=== PATIENT | male | born 1985 | race Caucasian/White ===

== ENCOUNTER 2022-09-06 11:52 | Inpatient (IN) | payer OTHER ==
[2022-09-06 13:20] VITALS: BMI 28.3
[2022-09-06] MEDS ORDERED: guaiFENesin 600 MG TABLET.ER (FP) PO PRN (15:54)
[2022-09-06] MEDS ORDERED: MAGNESIUM HYDROX 2400MG/30ML ORAL SUSPENSION 30 ML CUP PO PRN (15:54)
[2022-09-06] MEDS ORDERED: NALOXONE HCL (KLOXXADO) 8 MG SPRAY NS PRN (15:54)
[2022-09-06] MEDS ORDERED: NALOXONE HCL 0.4 MG/ML VIAL IM PRN (15:54)
[2022-09-06] MEDS ORDERED: BENZONATATE 200 MG CAPSULE PO PRN (15:54)
[2022-09-06] MEDS ORDERED: BENZOCAINE/MENTHOL (CHLORASEPTIC ) LOZENGE MM PRN (15:54)
[2022-09-06] MEDS ORDERED: MAG HYDROX/AL HYDROX/SIMETH 30 ML UNIT-DOSE CUP PO PRN (15:54)
[2022-09-06] MEDS ORDERED: LOPERAMIDE HCL 2 MG CAPSULE PO PRN (15:54)
[2022-09-06] MEDS ORDERED: ACETAMINOPHEN 325 MG TABLET (FP) PO PRN (15:54)
[2022-09-06] MEDS ORDERED: POLYETHYLENE GLYCOL (HEALTHYLAX) 3350 17 GM PACKET PO PRN (15:54)
[2022-09-06] MEDS ORDERED: ONDANSETRON *ODT* 4 MG TABLET SL PRN (15:54)
[2022-09-06] MEDS ORDERED: IBUPROFEN 600 MG TABLET (FP) PO PRN (15:54)
[2022-09-06] MEDS ORDERED: IBUPROFEN 400 MG TABLET (FP) PO PRN (15:54)
[2022-09-06] MEDS ORDERED: BISMUTH SUBSALICYLATE 524 MG/30 ML PO PRN (15:54)
[2022-09-06] MEDS ORDERED: hydrOXYzine PAMOATE 25 MG CAPSULE (FP) PO PRN (15:54)
[2022-09-06] MEDS ORDERED: DICYCLOMINE HCL 10 MG CAPSULE PO PRN (15:54)
[2022-09-06] MEDS ORDERED: chlordiazePOXIDE HCL 25 MG CAPSULE PO PRN (15:54)
[2022-09-06] MEDS ORDERED: chlordiazePOXIDE HCL 25 MG CAPSULE ONE (17:25)
[2022-09-06] MEDS: chlordiazePOXIDE HCL 25 MG CAPSULE PO SCH ×2 (17:27→22:22)
[2022-09-06] MEDS ORDERED: cloNIDine HCL 0.1 MG TABLET PO PRN (18:20)
[2022-09-06] MEDS ORDERED: metFORMIN HCL 500 MG TABLET (FP) PO ONE (18:37)
[2022-09-06] MEDS: MELATONIN 5 MG TABLETS PO SCH (22:21)
[2022-09-06] MEDS: THIAMINE HCL 100 MG TABLET (FP) PO SCH (22:21)
[2022-09-07] MEDS: chlordiazePOXIDE HCL 25 MG CAPSULE PO SCH ×4 (05:56→22:18)
[2022-09-07] MEDS: metFORMIN HCL 500 MG TABLET (FP) PO SCH ×2 (06:16→17:03)
[2022-09-07] MEDS: PRENATAL VITAMINS W/ FOLIC ACID TABLET (FP) PO SCH (10:15)
[2022-09-07 10:49] LABS: HEMATOCRIT 41.8 % (35.4-49); HEMOGLOBIN 14.3 GM/dL (11.7-16.9); MCH 33.3 pg (25.7-33.7); MCHC 34.2 g/dl (32.0-35.9); MEAN CELL VOLUME 97.3 fl (80-96); MEAN PLT VOLUME 10.3 fl (7.5-11.1); PLATELET COUNT 130 10^3/uL (134-434); RDW 12.7 % (11.9-15.9); WHITE BLOOD COUNT 3.8 K/mm3 (4.0-10.0)
[2022-09-07 10:55] LABS: POTASSIUM 3.9 mmol/L (3.5-5.1)
[2022-09-07 11:15] LABS: ALBUMIN 3.6 g/dl (3.4-5.0); CALCIUM 9.1 mg/dL (8.5-10.1)
[2022-09-07 11:18] LABS: CREATININE 0.8 mg/dL (0.55-1.3)
[2022-09-07] MEDS: THIAMINE HCL 100 MG TABLET (FP) PO SCH (22:17)
[2022-09-07] MEDS: METHOCARBAMOL 500 MG TABLET PO PRN (22:17)
[2022-09-07] MEDS: MELATONIN 5 MG TABLETS PO SCH (22:17)
[2022-09-08] MEDS: chlordiazePOXIDE HCL 25 MG CAPSULE PO SCH ×4 (05:33→22:13)
[2022-09-08] MEDS: metFORMIN HCL 500 MG TABLET (FP) PO SCH ×2 (06:14→17:32)
[2022-09-08] MEDS: PRENATAL VITAMINS W/ FOLIC ACID TABLET (FP) PO SCH (10:07)
[2022-09-08] MEDS: METHOCARBAMOL 500 MG TABLET PO PRN (22:14)
[2022-09-08] MEDS: MELATONIN 5 MG TABLETS PO SCH (22:14)
[2022-09-08] MEDS: THIAMINE HCL 100 MG TABLET (FP) PO SCH (22:14)
[2022-09-09] MEDS ORDERED: chlordiazePOXIDE HCL 10 MG CAPSULE PO PRN
[2022-09-09] MEDS: chlordiazePOXIDE HCL 10 MG CAPSULE PO SCH ×4 (05:43→22:20)
[2022-09-09] MEDS: metFORMIN HCL 500 MG TABLET (FP) PO SCH ×2 (06:20→16:56)
[2022-09-09] MEDS: PRENATAL VITAMINS W/ FOLIC ACID TABLET (FP) PO SCH (10:03)
[2022-09-09] MEDS: MELATONIN 5 MG TABLETS PO SCH (22:19)
[2022-09-09] MEDS: THIAMINE HCL 100 MG TABLET (FP) PO SCH (22:19)
[2022-09-10] MEDS: chlordiazePOXIDE HCL 10 MG CAPSULE PO SCH ×2 (05:46→16:57)
[2022-09-10] MEDS: metFORMIN HCL 500 MG TABLET (FP) PO SCH ×2 (06:08→16:56)
[2022-09-10] MEDS: PRENATAL VITAMINS W/ FOLIC ACID TABLET (FP) PO SCH (10:11)
[2022-09-10] MEDS: METHOCARBAMOL 500 MG TABLET PO PRN ×2 (14:40→21:44)
[2022-09-10] MEDS: THIAMINE HCL 100 MG TABLET (FP) PO SCH (21:44)
[2022-09-10] MEDS: MELATONIN 5 MG TABLETS PO SCH (21:44)
[2022-09-11] MEDS ORDERED: chlordiazePOXIDE HCL 10 MG CAPSULE PO ONE (05:00)
[2022-09-11] MEDS: metFORMIN HCL 500 MG TABLET (FP) PO SCH (06:02)
[2022-09-11 08:53] VITALS: BP 109/64; PULSE 77; RESP 18; TEMP 98.1
[2022-09-11] MEDS: PRENATAL VITAMINS W/ FOLIC ACID TABLET (FP) PO SCH (09:21)
== END 2022-09-11 12:55 | disposition other institution (70) | DRG 775 ==
LOC: YASAS 11:52 → Y3N 17:33
PROVIDERS: ADMIT Allergy & Immunology; ATTEND Surgery
PROC: HZ2ZZZZ Detoxification Services for Substance Abuse Treatment (ICD-10-PCS; principal; 2022-09-06)
DX: F10.230 Alcohol dependence with withdrawal, uncomplicated (principal); F51.05 Insomnia due to other mental disorder; F19.94 Other psychoactive substance use, unspecified with psychoactive substance-induced mood disorder; E11.9 Type 2 diabetes mellitus without complications; Z79.84 Long term (current) use of oral hypoglycemic drugs
CPT/HCPCS: 36415; 80053; 82962; 83036; 85027; 86780; 87635; 93005; 93010

== ENCOUNTER 2022-09-11 12:57 | Inpatient (IN) | payer OTHER ==
[2022-09-11] MEDS ORDERED: NALOXONE HCL (KLOXXADO) 8 MG SPRAY NS PRN (19:10)
[2022-09-11] MEDS ORDERED: NALOXONE HCL 0.4 MG/ML VIAL IVPUSH PRN (19:10)
[2022-09-11] MEDS ORDERED: IBUPROFEN 400 MG TABLET (FP) PO PRN (19:10)
[2022-09-11] MEDS ORDERED: METHOCARBAMOL 500 MG TABLET PO PRN (19:10)
[2022-09-11] MEDS ORDERED: BENZONATATE 200 MG CAPSULE PO PRN (19:10)
[2022-09-11] MEDS ORDERED: guaiFENesin 600 MG TABLET.ER (FP) PO PRN (19:10)
[2022-09-11] MEDS ORDERED: AMMONIUM LACTATE 12% LOTION 225 GM BOTTLE TP PRN (19:10)
[2022-09-11] MEDS ORDERED: POLYETHYLENE GLYCOL (HEALTHYLAX) 3350 17 GM PACKET PO PRN (19:10)
[2022-09-11] MEDS ORDERED: IBUPROFEN 600 MG TABLET (FP) PO PRN (19:10)
[2022-09-11] MEDS ORDERED: BENZOCAINE/MENTHOL (CHLORASEPTIC ) LOZENGE MM PRN (19:10)
[2022-09-11] MEDS ORDERED: MAG HYDROX/AL HYDROX/SIMETH 30 ML UNIT-DOSE CUP PO PRN (19:10)
[2022-09-11] MEDS ORDERED: ACETAMINOPHEN 325 MG TABLET (FP) PO PRN (19:10)
[2022-09-11] MEDS ORDERED: LOPERAMIDE HCL 2 MG CAPSULE PO PRN (19:10)
[2022-09-11] MEDS ORDERED: MAGNESIUM HYDROX 2400MG/30ML ORAL SUSPENSION 30 ML CUP PO PRN (19:10)
[2022-09-11] MEDS ORDERED: COLLOIDAL OATMEAL 1 BAR EACH TP PRN (19:10)
[2022-09-11] MEDS ORDERED: metFORMIN HCL 500 MG TABLET (FP) PO ONE (19:33)
[2022-09-11] MEDS: MELATONIN 5 MG TABLETS PO SCH (21:13)
[2022-09-11] MEDS: THIAMINE HCL 100 MG TABLET (FP) PO SCH (21:13)
[2022-09-11] MEDS: hydrOXYzine PAMOATE 25 MG CAPSULE (FP) PO PRN (21:14)
[2022-09-12] MEDS: metFORMIN HCL 500 MG TABLET (FP) PO SCH ×2 (06:40→16:46)
[2022-09-12] MEDS: PRENATAL VITAMINS W/ FOLIC ACID TABLET (FP) PO SCH (09:32)
[2022-09-12] MEDS: hydrOXYzine PAMOATE 25 MG CAPSULE (FP) PO PRN (16:46)
[2022-09-12] MEDS: MELATONIN 5 MG TABLETS PO SCH (21:25)
[2022-09-12] MEDS: THIAMINE HCL 100 MG TABLET (FP) PO SCH (21:25)
[2022-09-13] MEDS: metFORMIN HCL 500 MG TABLET (FP) PO SCH ×2 (06:18→17:06)
[2022-09-13] MEDS: PRENATAL VITAMINS W/ FOLIC ACID TABLET (FP) PO SCH (09:57)
[2022-09-13] MEDS: THIAMINE HCL 100 MG TABLET (FP) PO SCH (21:09)
[2022-09-13] MEDS: MELATONIN 5 MG TABLETS PO SCH (21:09)
[2022-09-13] MEDS: hydrOXYzine PAMOATE 25 MG CAPSULE (FP) PO PRN (21:09)
[2022-09-14] MEDS: metFORMIN HCL 500 MG TABLET (FP) PO SCH ×2 (06:55→17:24)
[2022-09-14] MEDS: PRENATAL VITAMINS W/ FOLIC ACID TABLET (FP) PO SCH (09:43)
[2022-09-14] MEDS: LIDOCAINE 5% TOPICAL PATCH TP SCH (12:16)
[2022-09-14] MEDS: INSULIN SLIDING SCALE (NOVOLOG) 1 VIAL SQ SCH (17:25)
[2022-09-14] MEDS: LIDOCAINE PATCH REMOVAL MC SCH (21:45)
[2022-09-14] MEDS: THIAMINE HCL 100 MG TABLET (FP) PO SCH (21:45)
[2022-09-14] MEDS: MELATONIN 5 MG TABLETS PO SCH (21:45)
[2022-09-14] MEDS: hydrOXYzine PAMOATE 25 MG CAPSULE (FP) PO PRN (21:46)
[2022-09-15] MEDS: metFORMIN HCL 500 MG TABLET (FP) PO SCH ×2 (06:02→16:32)
[2022-09-15] MEDS: INSULIN SLIDING SCALE (NOVOLOG) 1 VIAL SQ SCH ×2 (06:03→16:47)
[2022-09-15] MEDS: LIDOCAINE 5% TOPICAL PATCH TP SCH (09:51)
[2022-09-15] MEDS: PRENATAL VITAMINS W/ FOLIC ACID TABLET (FP) PO SCH (09:51)
[2022-09-15 11:26] LABS: POTASSIUM 5.6 mmol/L (3.5-5.1)
[2022-09-15 11:31] LABS: ALBUMIN 3.9 g/dl (3.4-5.0); BLOOD UREA NITROGEN 9.7 mg/dL (7-18); CALCIUM 9.5 mg/dL (8.5-10.1)
[2022-09-15 11:33] LABS: CREATININE 0.8 mg/dL (0.55-1.3)
[2022-09-15 11:35] LABS: BILIRUBIN,TOTAL 0.2 mg/dL (0.2-1); TOT PROT 7.2 g/dl (6.4-8.2)
[2022-09-15] MEDS: SODIUM POLYSTYRENE SULFONATE 15 GM/60 ML BOTTLE PO SCH ×2 (12:54→21:33)
[2022-09-15] MEDS: hydrOXYzine PAMOATE 25 MG CAPSULE (FP) PO PRN (16:32)
[2022-09-15] MEDS: MELATONIN 5 MG TABLETS PO SCH (21:31)
[2022-09-15] MEDS: THIAMINE HCL 100 MG TABLET (FP) PO SCH (21:32)
[2022-09-15] MEDS: LIDOCAINE PATCH REMOVAL MC SCH (21:35)
[2022-09-16] MEDS: INSULIN SLIDING SCALE (NOVOLOG) 1 VIAL SQ SCH ×2 (06:00→16:25)
[2022-09-16] MEDS: metFORMIN HCL 500 MG TABLET (FP) PO SCH ×2 (06:00→16:25)
[2022-09-16] MEDS: hydrOXYzine PAMOATE 25 MG CAPSULE (FP) PO PRN ×2 (06:01→21:14)
[2022-09-16] MEDS: PRENATAL VITAMINS W/ FOLIC ACID TABLET (FP) PO SCH (09:11)
[2022-09-16] MEDS: LIDOCAINE 5% TOPICAL PATCH TP SCH (09:12)
[2022-09-16 13:06] LABS: POTASSIUM 4.3 mmol/L (3.5-5.1)
[2022-09-16 13:14] LABS: ALBUMIN 3.8 g/dl (3.4-5.0); CALCIUM 9.3 mg/dL (8.5-10.1)
[2022-09-16 13:16] LABS: CREATININE 0.8 mg/dL (0.55-1.3)
[2022-09-16 13:17] LABS: BILIRUBIN,TOTAL 0.3 mg/dL (0.2-1); TOT PROT 6.8 g/dl (6.4-8.2)
[2022-09-16] MEDS: MELATONIN 5 MG TABLETS PO SCH (21:14)
[2022-09-16] MEDS: THIAMINE HCL 100 MG TABLET (FP) PO SCH (21:14)
[2022-09-16] MEDS: LIDOCAINE PATCH REMOVAL MC SCH (21:41)
[2022-09-17] MEDS: metFORMIN HCL 500 MG TABLET (FP) PO SCH ×2 (06:32→17:27)
[2022-09-17] MEDS: INSULIN SLIDING SCALE (NOVOLOG) 1 VIAL SQ SCH ×2 (06:34→16:38)
[2022-09-17] MEDS: LIDOCAINE 5% TOPICAL PATCH TP SCH (09:37)
[2022-09-17] MEDS: PRENATAL VITAMINS W/ FOLIC ACID TABLET (FP) PO SCH (09:37)
[2022-09-17] MEDS: THIAMINE HCL 100 MG TABLET (FP) PO SCH (21:31)
[2022-09-17] MEDS: MELATONIN 5 MG TABLETS PO SCH (21:31)
[2022-09-17] MEDS: hydrOXYzine PAMOATE 25 MG CAPSULE (FP) PO PRN (21:31)
[2022-09-17] MEDS: LIDOCAINE PATCH REMOVAL MC SCH (21:32)
[2022-09-18] MEDS: metFORMIN HCL 500 MG TABLET (FP) PO SCH ×2 (06:01→16:31)
[2022-09-18] MEDS: INSULIN SLIDING SCALE (NOVOLOG) 1 VIAL SQ SCH ×2 (06:01→16:32)
[2022-09-18] MEDS: PRENATAL VITAMINS W/ FOLIC ACID TABLET (FP) PO SCH (10:40)
[2022-09-18] MEDS: LIDOCAINE 5% TOPICAL PATCH TP SCH (10:40)
[2022-09-18] MEDS: MELATONIN 5 MG TABLETS PO SCH (21:18)
[2022-09-18] MEDS: hydrOXYzine PAMOATE 25 MG CAPSULE (FP) PO PRN (21:18)
[2022-09-18] MEDS: THIAMINE HCL 100 MG TABLET (FP) PO SCH (21:18)
[2022-09-18] MEDS: LIDOCAINE PATCH REMOVAL MC SCH (21:18)
[2022-09-19] MEDS: metFORMIN HCL 500 MG TABLET (FP) PO SCH ×2 (06:22→16:58)
[2022-09-19] MEDS: INSULIN SLIDING SCALE (NOVOLOG) 1 VIAL SQ SCH ×2 (06:23→17:03)
[2022-09-19] MEDS: PRENATAL VITAMINS W/ FOLIC ACID TABLET (FP) PO SCH (09:51)
[2022-09-19] MEDS: LIDOCAINE 5% TOPICAL PATCH TP SCH (09:51)
[2022-09-19] MEDS: LIDOCAINE PATCH REMOVAL MC SCH (21:01)
[2022-09-19] MEDS: MELATONIN 5 MG TABLETS PO SCH (21:01)
[2022-09-19] MEDS: THIAMINE HCL 100 MG TABLET (FP) PO SCH (21:01)
[2022-09-19] MEDS: hydrOXYzine PAMOATE 25 MG CAPSULE (FP) PO PRN (21:02)
[2022-09-20] MEDS: metFORMIN HCL 500 MG TABLET (FP) PO SCH ×2 (06:15→17:09)
[2022-09-20] MEDS: INSULIN SLIDING SCALE (NOVOLOG) 1 VIAL SQ SCH ×2 (06:16→17:10)
[2022-09-20] MEDS: LIDOCAINE 5% TOPICAL PATCH TP SCH (09:48)
[2022-09-20] MEDS: PRENATAL VITAMINS W/ FOLIC ACID TABLET (FP) PO SCH (09:48)
[2022-09-20] MEDS: BACITRACIN ZINC 15 GM TUBE TOPICAL OINTMENT TP SCH ×2 (11:17→21:19)
[2022-09-20] MEDS: THIAMINE HCL 100 MG TABLET (FP) PO SCH (21:17)
[2022-09-20] MEDS: MELATONIN 5 MG TABLETS PO SCH (21:17)
[2022-09-20] MEDS: hydrOXYzine PAMOATE 25 MG CAPSULE (FP) PO PRN (21:18)
[2022-09-20] MEDS: LIDOCAINE PATCH REMOVAL MC SCH (21:19)
[2022-09-21] MEDS: metFORMIN HCL 500 MG TABLET (FP) PO SCH ×2 (06:40→16:21)
[2022-09-21] MEDS: INSULIN SLIDING SCALE (NOVOLOG) 1 VIAL SQ SCH ×2 (07:00→16:22)
[2022-09-21] MEDS: PRENATAL VITAMINS W/ FOLIC ACID TABLET (FP) PO SCH (10:02)
[2022-09-21] MEDS: BACITRACIN ZINC 15 GM TUBE TOPICAL OINTMENT TP SCH ×2 (10:02→21:10)
[2022-09-21] MEDS: LIDOCAINE 5% TOPICAL PATCH TP SCH (10:02)
[2022-09-21] MEDS: MELATONIN 5 MG TABLETS PO SCH (21:09)
[2022-09-21] MEDS: THIAMINE HCL 100 MG TABLET (FP) PO SCH (21:09)
[2022-09-21] MEDS: hydrOXYzine PAMOATE 25 MG CAPSULE (FP) PO PRN (21:10)
[2022-09-21] MEDS: LIDOCAINE PATCH REMOVAL MC SCH (21:10)
[2022-09-22] MEDS: metFORMIN HCL 500 MG TABLET (FP) PO SCH ×2 (06:27→16:25)
[2022-09-22] MEDS: INSULIN SLIDING SCALE (NOVOLOG) 1 VIAL SQ SCH ×2 (06:28→16:25)
[2022-09-22] MEDS: PRENATAL VITAMINS W/ FOLIC ACID TABLET (FP) PO SCH (09:35)
[2022-09-22] MEDS: LIDOCAINE 5% TOPICAL PATCH TP SCH (09:35)
[2022-09-22] MEDS: BACITRACIN ZINC 15 GM TUBE TOPICAL OINTMENT TP SCH ×2 (10:28→21:27)
[2022-09-22] MEDS: MELATONIN 5 MG TABLETS PO SCH (21:27)
[2022-09-22] MEDS: hydrOXYzine PAMOATE 25 MG CAPSULE (FP) PO PRN (21:27)
[2022-09-22] MEDS: THIAMINE HCL 100 MG TABLET (FP) PO SCH (21:27)
[2022-09-22] MEDS: LIDOCAINE PATCH REMOVAL MC SCH (21:28)
[2022-09-23] MEDS: metFORMIN HCL 500 MG TABLET (FP) PO SCH ×2 (06:13→17:09)
[2022-09-23] MEDS: INSULIN SLIDING SCALE (NOVOLOG) 1 VIAL SQ SCH ×2 (06:14→17:09)
[2022-09-23] MEDS: LIDOCAINE 5% TOPICAL PATCH TP SCH (09:55)
[2022-09-23] MEDS: PRENATAL VITAMINS W/ FOLIC ACID TABLET (FP) PO SCH (09:56)
[2022-09-23] MEDS: BACITRACIN ZINC 15 GM TUBE TOPICAL OINTMENT TP SCH ×2 (09:56→21:04)
[2022-09-23] MEDS: MELATONIN 5 MG TABLETS PO SCH (21:04)
[2022-09-23] MEDS: LIDOCAINE PATCH REMOVAL MC SCH (21:04)
[2022-09-23] MEDS: hydrOXYzine PAMOATE 25 MG CAPSULE (FP) PO PRN (21:04)
[2022-09-23] MEDS: THIAMINE HCL 100 MG TABLET (FP) PO SCH (21:04)
[2022-09-24] MEDS: INSULIN SLIDING SCALE (NOVOLOG) 1 VIAL SQ SCH ×2 (06:01→16:29)
[2022-09-24] MEDS: metFORMIN HCL 500 MG TABLET (FP) PO SCH ×2 (06:01→16:24)
[2022-09-24] MEDS: LIDOCAINE 5% TOPICAL PATCH TP SCH (09:37)
[2022-09-24] MEDS: PRENATAL VITAMINS W/ FOLIC ACID TABLET (FP) PO SCH (09:37)
[2022-09-24] MEDS: BACITRACIN ZINC 15 GM TUBE TOPICAL OINTMENT TP SCH (09:37)
[2022-09-24] MEDS: THIAMINE HCL 100 MG TABLET (FP) PO SCH (21:37)
[2022-09-24] MEDS: BACITRACIN 0.9 GM PACKET TP SCH (21:38)
[2022-09-24] MEDS: LIDOCAINE PATCH REMOVAL MC SCH (21:40)
[2022-09-24] MEDS ORDERED: MELATONIN 5 MG TABLETS PO PRN (22:00)
[2022-09-25] MEDS: metFORMIN HCL 500 MG TABLET (FP) PO SCH ×2 (06:25→16:25)
[2022-09-25] MEDS: INSULIN SLIDING SCALE (NOVOLOG) 1 VIAL SQ SCH ×2 (06:27→16:25)
[2022-09-25] MEDS: PRENATAL VITAMINS W/ FOLIC ACID TABLET (FP) PO SCH (09:51)
[2022-09-25] MEDS: BACITRACIN 0.9 GM PACKET TP SCH ×2 (09:51→21:22)
[2022-09-25] MEDS: LIDOCAINE 5% TOPICAL PATCH TP SCH (09:51)
[2022-09-25 15:18] LABS: POTASSIUM 4.6 mmol/L (3.5-5.1)
[2022-09-25 15:24] LABS: CALCIUM 8.8 mg/dL (8.5-10.1)
[2022-09-25 15:28] LABS: CREATININE 0.8 mg/dL (0.55-1.3)
[2022-09-25 15:30] LABS: BILIRUBIN,TOTAL 0.8 mg/dL (0.2-1); TOT PROT 7.1 g/dl (6.4-8.2)
[2022-09-25] MEDS: LIDOCAINE PATCH REMOVAL MC SCH (21:22)
[2022-09-25] MEDS: THIAMINE HCL 100 MG TABLET (FP) PO SCH (21:22)
[2022-09-26] MEDS: metFORMIN HCL 500 MG TABLET (FP) PO SCH ×2 (06:09→16:35)
[2022-09-26] MEDS: INSULIN SLIDING SCALE (NOVOLOG) 1 VIAL SQ SCH ×2 (06:09→16:36)
[2022-09-26] MEDS: PRENATAL VITAMINS W/ FOLIC ACID TABLET (FP) PO SCH (09:30)
[2022-09-26] MEDS: LIDOCAINE 5% TOPICAL PATCH TP SCH (09:30)
[2022-09-26] MEDS: BACITRACIN 0.9 GM PACKET TP SCH ×2 (09:30→21:28)
[2022-09-26] MEDS: LIDOCAINE PATCH REMOVAL MC SCH (21:28)
[2022-09-26] MEDS: THIAMINE HCL 100 MG TABLET (FP) PO SCH (21:28)
[2022-09-27] MEDS: INSULIN SLIDING SCALE (NOVOLOG) 1 VIAL SQ SCH ×2 (06:10→16:32)
[2022-09-27] MEDS: metFORMIN HCL 500 MG TABLET (FP) PO SCH ×2 (06:10→16:31)
[2022-09-27] MEDS: LIDOCAINE 5% TOPICAL PATCH TP SCH (09:40)
[2022-09-27] MEDS: PRENATAL VITAMINS W/ FOLIC ACID TABLET (FP) PO SCH (09:41)
[2022-09-27] MEDS: BACITRACIN 0.9 GM PACKET TP SCH ×2 (09:41→21:11)
[2022-09-27] MEDS: THIAMINE HCL 100 MG TABLET (FP) PO SCH (21:10)
[2022-09-27] MEDS: LIDOCAINE PATCH REMOVAL MC SCH (21:10)
[2022-09-28] MEDS: metFORMIN HCL 500 MG TABLET (FP) PO SCH ×2 (06:44→16:33)
[2022-09-28] MEDS: INSULIN SLIDING SCALE (NOVOLOG) 1 VIAL SQ SCH ×2 (06:45→16:35)
[2022-09-28] MEDS: LIDOCAINE 5% TOPICAL PATCH TP SCH (09:57)
[2022-09-28] MEDS: PRENATAL VITAMINS W/ FOLIC ACID TABLET (FP) PO SCH (09:57)
[2022-09-28] MEDS: BACITRACIN 0.9 GM PACKET TP SCH ×2 (09:57→21:38)
[2022-09-28] MEDS: THIAMINE HCL 100 MG TABLET (FP) PO SCH (21:37)
[2022-09-28] MEDS: LIDOCAINE PATCH REMOVAL MC SCH (21:38)
[2022-09-29] MEDS: metFORMIN HCL 500 MG TABLET (FP) PO SCH ×2 (06:04→16:36)
[2022-09-29] MEDS: INSULIN SLIDING SCALE (NOVOLOG) 1 VIAL SQ SCH ×2 (06:04→16:38)
[2022-09-29] MEDS: LIDOCAINE 5% TOPICAL PATCH TP SCH (09:47)
[2022-09-29] MEDS: PRENATAL VITAMINS W/ FOLIC ACID TABLET (FP) PO SCH (09:47)
[2022-09-29] MEDS: BACITRACIN 0.9 GM PACKET TP SCH ×2 (09:47→21:17)
[2022-09-29] MEDS: NALTREXONE HCL 50 MG TABLET PO SCH (14:44)
[2022-09-29] MEDS: LIDOCAINE PATCH REMOVAL MC SCH (21:17)
[2022-09-29] MEDS: THIAMINE HCL 100 MG TABLET (FP) PO SCH (21:17)
[2022-09-30] MEDS: metFORMIN HCL 500 MG TABLET (FP) PO SCH (06:05)
[2022-09-30] MEDS: INSULIN SLIDING SCALE (NOVOLOG) 1 VIAL SQ SCH (06:07)
[2022-09-30 07:05] VITALS: BP 129/78; PULSE 62; RESP 18; TEMP 97.3
[2022-09-30] MEDS: BACITRACIN 0.9 GM PACKET TP SCH (09:06)
[2022-09-30] MEDS: LIDOCAINE 5% TOPICAL PATCH TP SCH (09:06)
[2022-09-30] MEDS: NALTREXONE HCL 50 MG TABLET PO SCH (09:06)
[2022-09-30] MEDS: PRENATAL VITAMINS W/ FOLIC ACID TABLET (FP) PO SCH (09:06)
== END 2022-09-30 09:12 | disposition home or self-care (01) | DRG 772 ==
LOC: YASAS 12:57 → Y3W 12:58
PROVIDERS: ADMIT Allergy & Immunology
PROC: HZ42ZZZ Group Counseling for Substance Abuse Treatment, Cognitive-Behavioral (ICD-10-PCS; principal; 2022-09-11)
DX: F10.20 Alcohol dependence, uncomplicated (principal); F19.24 Other psychoactive substance dependence with psychoactive substance-induced mood disorder; F51.05 Insomnia due to other mental disorder; E87.5 Hyperkalemia; E11.59 Type 2 diabetes mellitus with other circulatory complications; Z79.84 Long term (current) use of oral hypoglycemic drugs; R07.9 Chest pain, unspecified; Z72.0 Tobacco use
CPT/HCPCS: 36415; 71045-TC-FY; 80053; 82607; 82746; 82962; 93005; 93010